=== PATIENT | male | born 1950 | race Caucasian/White ===

== ENCOUNTER → 2016-10-11 | Outpatient (CLI) | payer BC | LOC: COL.RAD 08:53 | DX: C61 Malignant neoplasm of prostate (principal); M19.019 Primary osteoarthritis, unspecified shoulder; M17.0 Bilateral primary osteoarthritis of knee | CPT/HCPCS: A9503; Q9967 ==

== ENCOUNTER 2016-11-13 14:09 | Inpatient (IN) | payer BC ==
[~2016-11-13] VITALS: Ht 193 cm; Wt 109.1 kg
[2016-12-17] VITALS (10 sets, daily range): BP systolic 115–133; BP diastolic 62–80; PULSE 73–86; TEMP 97.9–98.2
[2016-12-17] MEDS ORDERED: PRILOSEC 20MG20 MG PO (05:59)
[2016-12-17] MEDS ORDERED: VITAMIN D 1001000 IU (06:00)
[2016-12-17] MEDS ORDERED: IMURAN 50MG TAB50 MG PO (06:01)
[2016-12-18 01:58] VITALS: BP 129/76; PULSE 66; TEMP 97.5
[2016-12-18 05:12] VITALS: BP 136/70; PULSE 67; TEMP 97.6
[2016-12-18 07:32] LABS: BASO % 0.1 % (0.0-2.0); GRAN % 80.5 % (42.2-75.2); HEMATOCRIT 41.8 % (42.0-52.0); LYMPH # 0.7 (1.2-3.4); LYMPH % 6.9 % (20.0-51.0); MEAN CELL VOLUME 99 fl (80.0-100.0); MEAN CORPUSCULAR HEMOGLOBIN 33 pg (27.0-31.0); MEAN CORPUSCULAR HGB CONC 34 g/dl (33.0-37.0); MEAN PLATELET VOLUME 9.2 fl (7.4-10.4); MONO # 1.2 (0.1-0.6); PLATELET COUNT 256 K/mm3 (130-400); RED BLOOD COUNT 4.22 M/mm3 (4.20-5.60); REDCELL DISTRIBUTION WIDTH-CV 12.8 % (11.5-14.5)
[2016-12-18 07:47] LABS: CALCIUM 8.5 mg/dL (8.4-10.2); CREATININE, serum 0.79 mg/dL (0.66-1.25); POTASSIUM 4.4 mmol/L (3.4-5.0)
[2016-12-18 09:27] VITALS: BP 140/78; PULSE 66; TEMP 97.6
[2016-12-18 13:44] VITALS: BP 130/70; PULSE 78; TEMP 98.9
[2016-12-18 16:25] VITALS: BP 144/72; PULSE 91; TEMP 98
[2016-12-18 22:00] VITALS: BP 116/78; PULSE 71; TEMP 98.4
[2016-12-19 05:01] VITALS: BP 130/70; PULSE 65; TEMP 98.1
[2016-12-19 09:11] VITALS: BP 127/74; PULSE 82; TEMP 98.4
[2016-12-19 17:30] VITALS: BP 124/68; PULSE 79; TEMP 97.8
[2016-12-19 22:00] VITALS: BP 114/69; PULSE 81; TEMP 98.5
[2016-12-20 06:26] VITALS: BP 136/73; PULSE 76; TEMP 98.2
[2016-12-20 06:46] LABS: HEMATOCRIT 38.1 % (42.0-52.0); HEMOGLOBIN 13.1 g/dl (13.5-18.0); MEAN CELL VOLUME 97 fl (80.0-100.0); MEAN CORPUSCULAR HEMOGLOBIN 33 pg (27.0-31.0); MEAN CORPUSCULAR HGB CONC 34 g/dl (33.0-37.0); MEAN PLATELET VOLUME 8.9 fl (7.4-10.4); PLATELET COUNT 234 K/mm3 (130-400); RED BLOOD COUNT 3.93 M/mm3 (4.20-5.60); REDCELL DISTRIBUTION WIDTH-CV 12.8 % (11.5-14.5); WHITE BLOOD COUNT 6.7 K/mm3 (4.8-10.8)
[2016-12-20 07:00] LABS: CALCIUM 8.7 mg/dL (8.4-10.2); CREATININE, serum 0.71 mg/dL (0.66-1.25); POTASSIUM 3.7 mmol/L (3.4-5.0)
[2016-12-20 09:59] VITALS: BP 125/70; PULSE 94; TEMP 97.9
[2016-12-20 14:15] VITALS: BP 155/72; PULSE 97; TEMP 97.7
[2016-12-20 17:27] VITALS: BP 121/68; PULSE 75; TEMP 98.1
[2016-12-20 21:57] VITALS: BP 135/86; PULSE 87; TEMP 98.3
[2016-12-21 05:26] VITALS: BP 125/67; PULSE 67; TEMP 98.1
[2016-12-21 09:36] VITALS: BP 157/84; PULSE 74; TEMP 97.5
[2016-12-21 14:08] VITALS: BP 141/57; PULSE 81; TEMP 98.6
[2016-12-21] MEDS ORDERED: PERCOCET 325 MG1 TA2 PO (16:48)
[2016-12-21] MEDS ORDERED: SENOKOT S 50 MG1 TAB PO (16:50)
[2016-12-21] MEDS ORDERED: CIPRO 500MG TA500 MG PO (16:51)
== END 2016-12-21 18:15 | disposition home or self-care (01) | DRG 707 ==
LOC: INPTSU 12-17 05:15 → SURG 12-17 07:30
PROVIDERS: Urology
PROC: 0VT04ZZ Resection of Prostate, Percutaneous Endoscopic Approach (ICD-10-PCS; principal; 2016-12-17 07:30)
PROC: 07BC4ZX Excision of Pelvis Lymphatic, Percutaneous Endoscopic Approach, Diagnostic (ICD-10-PCS; 2016-12-17 07:30)
DX: C61 Malignant neoplasm of prostate (principal); K91.3 Postprocedural intestinal obstruction; K75.4 Autoimmune hepatitis; K21.9 Gastro-esophageal reflux disease without esophagitis
CPT/HCPCS: A4315; A9284; C1713; J0690; J1100; J1170; J1885; J2175; J2270; J2405; J2704; J2710; J7120

== ENCOUNTER → 2020-07-11 | Outpatient (CLI) | payer MEDICARE ==
[2020-07-11] VITALS (12 sets, daily range): BP systolic 111–157; BP diastolic 65–84; PULSE 75–92
[~2020-07-11] VITALS: Ht 193 cm; Wt 113.8 kg
[~2020-07-11] MED LIST: B-12 500 MCG PO; CALCIUM 600MG+D1 TAB PO; CIPRO 500MG TA500 MG PO; IMURAN 50MG TAB50 MG PO; MASON NATURAL2000 IU PO; PERCOCET 325 MG1 TA2 PO; PRILOSEC 20MG20 MG PO; SENOKOT S 50 MG1 TAB PO; ZESTORETIC 12.51 TA1 PO
[2020-07-11 12:28] LABS: INR 1.2 (0.8-3.0); PROTHROMBIN TIME 13.5 SECONDS (9.7-12.8)
--- NOTE | 2020-07-11 12:40 | NUR ---
pt to ct per ambulation. Pt positioned in supine position. Monitors applied.
--- NOTE | 2020-07-11 12:55 | NUR ---
Specimens obtained by Dr Finney and placed in formalin. Specimen labeled.
== END ==
LOC: COL.RAD 11:39
PROVIDERS: Internal Medicine
DX: K75.4 Autoimmune hepatitis (principal); D84.9 Immunodeficiency, unspecified; K74.00 Hepatic fibrosis, unspecified
CPT/HCPCS: 32109